=== PATIENT | female | born 1970 | race Caucasian/White ===

== ENCOUNTER 2021-12-14 21:46 | Emergency (ER) | payer OTHER ==
[~2021-12-14] VITALS: Ht 162.6 cm; Wt 72.6 kg
[2021-12-14 22:08] VITALS: BP 148/88
[2021-12-14 22:14] VITALS: BP 148/88
--- NOTE | 2021-12-14 22:14 | NUR ---
Patient states " I want to go home, my blood pressure is fine."
--- NOTE | 2021-12-14 22:14 | NUR ---
PATIENT LEFT WITHOUT BEING SEEN BY DR. Pompa. NO FURTHER CARE PROVIDED FOR PATIENT.
== END 2021-12-14 22:14 | disposition left against medical advice (07) ==
LOC: MED 21:46
DX: R51.9 Headache, unspecified (principal); R11.2 Nausea with vomiting, unspecified; Z53.21 Procedure and treatment not carried out due to patient leaving prior to being seen by health care provider